=== PATIENT | female | born 2000 | race Caucasian/White ===

== ENCOUNTER 2019-06-18 18:11 | Emergency (ER) | payer OTHER ==
[~2019-06-18] VITALS: Ht 160 cm; Wt 59.1 kg
[2019-06-18 19:10] LABS: BASO % 0.3 % (0.0-1.0); EOS # 0.2 10^3/uL (0.0-0.50); EOS % 1.7 % (0.0-3.0); HEMATOCRIT 44.7 % (36.0-47.0); HEMOGLOBIN 15.7 g/dl (12.0-15.5); LYMPH # 1.8 10^3/uL (1.5-6.5); LYMPH % 19.5 % (24.0-44.0); MEAN CORPUSCULAR HEMOGLOBIN 31.7 pg (27.0-33.0); MEAN CORPUSCULAR HGB CONC 35.1 g/dl (32.0-36.5); MEAN CORPUSCULAR VOLUME 90.3 fl (80.0-96.0); MONO # 0.4 10^3/uL (0.0-0.8); MONO % 4.6 % (0.0-5.0); NEUTROPHILS # 6.9 10^3/uL (1.8-7.7); NEUTROPHILS % 73.8 % (36.0-66.0); PLATELET COUNT, AUTOMATED 301 10^3/uL (150-450); RED BLOOD COUNT 4.95 10^6/uL (4.00-5.40); WHITE BLOOD COUNT 9.3 10^3/uL (4.0-10.0)
[2019-06-18 19:38] LABS: ALBUMIN 4.4 GM/DL (3.2-5.2); ALT/SGPT 23 U/L (12-78); AMYLASE 61 U/L (25-115); BILIRUBIN,DIRECT < 0.1 MG/DL (0.0-0.2); BILIRUBIN,TOTAL 0.2 MG/DL (0.2-1.0); BLOOD UREA NITROGEN 16 MG/DL (7-18); CALCIUM LEVEL 9.7 MG/DL (8.5-10.1); CARBON DIOXIDE LEVEL 27 MEQ/L (21-32); CHLORIDE LEVEL 108 MEQ/L (98-107); CREATININE FOR GFR 0.93 MG/DL (0.55-1.30); GLUCOSE, FASTING 113 MG/DL (70-100); POTASSIUM SERUM 3.9 MEQ/L (3.5-5.1); SODIUM LEVEL 141 MEQ/L (136-145); TOTAL PROTEIN 8.8 GM/DL (6.4-8.2)
[2019-06-18 19:39] LABS: HCG, SERUM QUALITATIVE NEGATIVE (NEGATIVE)
[2019-06-18] MEDS ORDERED: NS 1,000 ML IV ONE (22:00)
[2019-06-18] MEDS ORDERED: ISOVUE-370 76% 100ML VIAL (Q9967) As Ordered ONE (22:14)
--- NOTE | 2019-06-18 23:09 | REPVR ---
EXAM: CT Abdomen and Pelvis With Contrast EXAM DATE/TIME: 06/18/2019 10:30 PM CLINICAL HISTORY: 18 years old, female; Abdominal pain; Localized; Right lower quadrant (rlq); Additional info: Rlq pain TECHNIQUE: Imaging protocol: Axial computed tomography images of the abdomen and pelvis with intravenous contrast. Coronal and sagittal reformatted images were created and reviewed. Radiation optimization: All CT scans at this facility use at least one of these dose optimization techniques: automated exposure control; mA and/or kV adjustment per patient size (includes targeted exams where dose is matched to clinical indication); or iterative reconstruction. Contrast material: ISOVUE 370;Contrast volume: 100 ml;Contrast route: IV; COMPARISON: No relevant prior studies available. FINDINGS: Liver: The liver attenuation is 90 Hounsfield units and the spleen is 131 Hounsfield units. Gallbladder and bile ducts: Normal. No calcified stones. No ductal dilation. Pancreas: Normal. No ductal dilation. Spleen: Normal. No splenomegaly. Adrenals: Normal. No mass. Kidneys and ureters: Normal. No hydronephrosis. Stomach and bowel: Normal. No obstruction. No mucosal thickening. Appendix: A normal contrast-filled appendix is seen. Intraperitoneal space: Normal. No free air. No significant fluid collection. Vasculature: Normal. No abdominal aortic aneurysm. Lymph nodes: Normal. No enlarged lymph nodes. Bladder: Unremarkable as visualized. Reproductive: The ovaries appear normal and symmetric. Bones/joints: No acute fracture. No dislocation. Soft tissues: Unremarkable. IMPRESSION: 1. Mild fatty infiltration of the liver. 2. Otherwise negative CT abdomen/pelvis. A normal appendix is seen. No renal or ureteral calculi are evident and there is no evidence of obstructive uropathy. Electronically signed by: Judah Pierce On 06/18/2019 23:09:10 PM
[2019-06-19] MEDS ORDERED: FLAG500T PO (00:02)
[2019-06-19 00:07] VITALS: BP 122/81
[2019-06-19 01:23] LABS: CHLAMYDIA DNA AMPLIFICATION NEGATIVE (NEGATIVE); GC DNA AMPLIFICATION NEGATIVE (NEGATIVE)
== END 2019-06-19 00:14 | disposition home or self-care (01) ==
LOC: M ED 18:11
DX: N76.0 Acute vaginitis (principal); R56.9 Unspecified convulsions
CPT/HCPCS: 74177; 80048; 80076; 81001; 82150; 84703; 85025; 87210; 87661; 96360; 96361; 99284; Q9967

== ENCOUNTER → 2019-08-09 | Outpatient (REF) | payer OTHER ==
[~2019-08-09] MED LIST: FLAG500T PO
== END ==
LOC: M SFHCLERA 18:46
PROVIDERS: ATTEND Physician Assistant
DX: J02.9 Acute pharyngitis, unspecified (principal)

== ENCOUNTER → 2020-05-01 | Outpatient (REF) | payer OTHER ==
[~2020-05-01] MED LIST changes: +ROBA750T4 PO
[2020-05-01 21:00] LABS: CHLAMYDIA DNA AMPLIFICATION POSITIVE (NEGATIVE); GC DNA AMPLIFICATION NEGATIVE (NEGATIVE)
== END ==
LOC: M SFHCLERA 14:55
PROVIDERS: ATTEND Physician Assistant
DX: R39.15 Urgency of urination (principal)

== ENCOUNTER 2020-05-15 01:16 | Emergency (ER) | payer OTHER ==
[~2020-05-15] VITALS: Ht 157.5 cm; Wt 68.2 kg
[~2020-05-15 01:16] MED LIST changes: -ROBA750T4 PO
[2020-05-15 01:17] VITALS: BP 128/85
[2020-05-15] MEDS ORDERED: methocarbamoL 750 MG TAB PO ONE (01:45)
[2020-05-15] MEDS ORDERED: ACETAMINOPHEN 325 MG TAB PO ONE (01:45)
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
[2020-05-15] MEDS ORDERED: ROBA750T4 PO (02:02)
== END 2020-05-15 02:09 | disposition home or self-care (01) ==
LOC: M ED 01:16
DX: S16.1XXA Strain of muscle, fascia and tendon at neck level, initial encounter (principal); V40.9XXA Unspecified car occupant injured in collision with pedestrian or animal in traffic accident, initial encounter; Y92.411 Interstate highway as the place of occurrence of the external cause; Y93.9 Activity, unspecified; Y99.9 Unspecified external cause status

== ENCOUNTER → 2020-05-28 | Outpatient (REF) | payer OTHER ==
[~2020-05-28] MED LIST changes: +AVIATAB PO; +IBUP-1022 PO; +ROBA750T4 PO
[2020-05-28 18:54] LABS: CHLAMYDIA DNA AMPLIFICATION NEGATIVE (NEGATIVE); GC DNA AMPLIFICATION NEGATIVE (NEGATIVE)
== END ==
LOC: M SFHCLERA 11:51
PROVIDERS: ATTEND Physician Assistant
DX: Z11.3 Encounter for screening for infections with a predominantly sexual mode of transmission (principal)
CPT/HCPCS: 81025; 87661; G0463

== ENCOUNTER 2020-08-06 13:47 | Emergency (ER) | payer OTHER ==
[~2020-08-06] VITALS: Ht 157.5 cm; Wt 69.8 kg
[~2020-08-06 13:47] MED LIST changes: -AVIATAB PO; -IBUP-1022 PO
[2020-08-06] MEDS ORDERED: AVIATAB PO (13:56)
[2020-08-06 14:51] LABS: BASO # 0.1 10^3/uL (0.0-0.2); BASO % 0.6 % (0.0-1.0); EOS # 0.1 10^3/uL (0.0-0.5); EOS % 1.1 % (0.0-3.0); HEMATOCRIT 41.5 % (36.0-47.0); HEMOGLOBIN 14.1 g/dl (12.0-15.5); LYMPH # 1.6 10^3/uL (1.5-5.0); LYMPH % 17.8 % (24.0-44.0); MEAN CORPUSCULAR HEMOGLOBIN 31.8 pg (27.0-33.0); MEAN CORPUSCULAR VOLUME 93.5 fl (80.0-96.0); MONO # 0.6 10^3/uL (0.0-0.8); MONO % 6.8 % (0.0-5.0); NEUTROPHILS # 6.5 10^3/uL (1.5-8.5); NEUTROPHILS % 73.4 % (36.0-66.0); PLATELET COUNT, AUTOMATED 269 10^3/uL (150-450); RED BLOOD COUNT 4.44 10^6/uL (4.00-5.40); WHITE BLOOD COUNT 8.8 10^3/uL (4.0-10.0)
[2020-08-06 15:13] LABS: ALBUMIN 3.6 GM/DL (3.2-5.2); ALT/SGPT 21 U/L (12-78); BILIRUBIN,DIRECT < 0.1 MG/DL (0.0-0.2); BILIRUBIN,TOTAL 0.4 MG/DL (0.2-1.0); BLOOD UREA NITROGEN 15 MG/DL (7-18); CALCIUM LEVEL 8.8 MG/DL (8.5-10.1); CARBON DIOXIDE LEVEL 28 MEQ/L (21-32); CHLORIDE LEVEL 109 MEQ/L (98-107); CREATININE FOR GFR 1.01 MG/DL (0.55-1.30); GLUCOSE, FASTING 97 MG/DL (70-100); LIPASE 124 U/L (73-393); POTASSIUM SERUM 4.2 MEQ/L (3.5-5.1); SODIUM LEVEL 142 MEQ/L (136-145); TOTAL PROTEIN 7.3 GM/DL (6.4-8.2)
[2020-08-06] MEDS ORDERED: ACETAMINOPHEN 325 MG TAB PO ONE (16:45)
--- NOTE | 2020-08-06 17:58 | REPVR ---
PROCEDURE INFORMATION: Exam: US Pelvis Complete, Transabdominal and US Pelvis, Transvaginal and US Duplex Artery and Vein, Ovaries, Complete Exam date and time: 08/06/2020 5:20 PM Age: 19 years old Clinical indication: Pelvic pain; Additional info: Pelvic pain, left adenexal pain TECHNIQUE: Imaging protocol: Real-time transabdominal and transvaginal pelvic ultrasound (complete) with image documentation. Transvaginal imaging was used for better evaluation of the endometrium and adnexa. Real-time duplex ultrasound scan of the arterial and venous flow of the ovaries with B-mode, color Doppler flow and spectral waveform analysis. COMPARISON: CT ABD/PEL W/IV CONTRAST ONLY 06/18/2019 10:21 PM FINDINGS: Uterus/cervix: The uterus measures 7.0 x 3.8 x 5.5 cm transabdominally and 8.0 x 4.3 x 6.4 cm transvaginally. It is anteverted and homogeneous in echotexture, without demonstrated lesion. The endometrium measures 14 mm in thickness transabdominally and 8 mm in thickness transvaginally. Right adnexa: The right ovary measures 2.4 x 3.2 x 1.8 cm, as seen transvaginally only, and contains multiple follicles. There is normal internal arterial and venous flow. Peak systolic velocity 11.1 cm/s, end-diastolic velocity 4.9 cm/s, resistive index 0.56. Left adnexa: The left ovary measures 3.0 x 2.2 x 2.4 cm, as seen transvaginally only, and contains multiple follicles. There is normal internal arterial and venous flow. Peak systolic velocity 9.2 cm/s, end-diastolic velocity 2.8 cm/s, resistive index 0.69. Intraperitoneal space: No significant free fluid is demonstrated in the cul-de-sac. Bladder: The urinary bladder measures 6.6 x 3.7 x 9.0 cm. IMPRESSION: 1. Bilateral ovarian follicles. 2. Normal internal flow to both ovaries without torsion. 3. Anteverted uterus without demonstrated abnormality. Endometrial thickness of 14 mm transabdominally but only 8 mm transvaginally. Electronically signed by: Joseph Longoria On 08/06/2020 17:57:45 PM
[2020-08-06] MEDS ORDERED: IBUP-1022 PO (18:15)
[2020-08-06 18:24] VITALS: BP 110/75
--- NOTE | 2020-08-08 16:38 | ED PDOC ---
Post-Departure Follow-Up certified letter sent to [facility] for [facility] Carla Ortiz MD Aug 08, 2020 16:38
== END 2020-08-06 18:29 | disposition home or self-care (01) ==
LOC: M ED 13:47
DX: N94.6 Dysmenorrhea, unspecified (principal); Z79.3 Long term (current) use of hormonal contraceptives

== ENCOUNTER → 2020-08-29 | Outpatient (CLI) | payer OTHER ==
[~2020-08-29] MED LIST changes: +AVIATAB PO; +IBUP-1022 PO
== END ==
LOC: M LABSMTC 14:09
PROVIDERS: ATTEND Family Medicine
DX: Z20.828 Contact with and (suspected) exposure to other viral communicable diseases (principal)
CPT/HCPCS: C9803; U0003

== ENCOUNTER 2020-09-24 20:21 | Emergency (ER) | payer OTHER, SELFPAY ==
[~2020-09-24] VITALS: Ht 157.5 cm; Wt 67.7 kg
--- NOTE | 2020-09-24 20:52 | REPVR ---
PROCEDURE INFORMATION: Exam: XR Chest, 2 Views Exam date and time: 09/24/2020 8:49 PM Age: 19 years old Clinical indication: Other: Chest pain TECHNIQUE: Imaging protocol: XR of the chest Views: 2 views. COMPARISON: No relevant prior studies available. FINDINGS: Lungs: Unremarkable. No consolidation. Pleural space: Unremarkable. No pleural effusion. No pneumothorax. Heart/Mediastinum: Unremarkable. No cardiomegaly. Bones/joints: Unremarkable. IMPRESSION: No acute findings. Electronically signed by: Vaughn Michelle On 09/24/2020 20:52:00 PM
[2020-09-24 21:57] LABS: BASO % 0.3 % (0.0-1.0); EOS # 0.1 10^3/uL (0.0-0.5); EOS % 1.6 % (0.0-3.0); HEMATOCRIT 40.5 % (36.0-47.0); HEMOGLOBIN 13.4 g/dl (12.0-15.5); LYMPH # 2.5 10^3/uL (1.5-5.0); LYMPH % 28.6 % (24.0-44.0); MEAN CORPUSCULAR HEMOGLOBIN 30.6 pg (27.0-33.0); MEAN CORPUSCULAR HGB CONC 33.1 g/dl (32.0-36.5); MEAN CORPUSCULAR VOLUME 92.5 fl (80.0-96.0); MONO # 0.6 10^3/uL (0.0-0.8); MONO % 7.3 % (0.0-5.0); NEUTROPHILS # 5.4 10^3/uL (1.5-8.5); NEUTROPHILS % 62.1 % (36.0-66.0); PLATELET COUNT, AUTOMATED 302 10^3/uL (150-450); RED BLOOD COUNT 4.38 10^6/uL (4.00-5.40); WHITE BLOOD COUNT 8.7 10^3/uL (4.0-10.0)
[2020-09-24 22:08] LABS: INR 0.92; PROTHROMBIN TIME 12.5 SECONDS (12.5-14.3)
[2020-09-24 22:09] LABS: PARTIAL THROMBOPLASTIN TIME 27.1 SECONDS (24.2-38.5)
[2020-09-24 22:12] LABS: D-DIMER QUANT < 270 ng/ml (<500)
[2020-09-24 22:31] LABS: BLOOD UREA NITROGEN 17 MG/DL (7-18); CALCIUM LEVEL 9.4 MG/DL (8.5-10.1); CARBON DIOXIDE LEVEL 27 MEQ/L (21-32); CHLORIDE LEVEL 107 MEQ/L (98-107); CK-MB VALUE MASS < 1.0 NG/ML (<3.6); CPK CREATINE PHOSPHOKINASE 52 U/L (26-192); CREATININE FOR GFR 0.88 MG/DL (0.55-1.30); GLUCOSE, FASTING 82 MG/DL (70-100); MB/CK RELATIVE INDEX 1.92 (< OR =4); POTASSIUM SERUM 4.1 MEQ/L (3.5-5.1); SODIUM LEVEL 141 MEQ/L (136-145); TROPONIN I < 0.02 NG/ML (< 0.10)
[2020-09-24 23:10] VITALS: BP 126/82
--- NOTE | 2020-09-25 18:56 | ECGEPIP ---
[facility] - ED Test Date: 2020-09-24 Pat Name: MICHAELLE SPENCER Department: Room: - Gender: Female [employer] Admin: : [id number] Requested By: VERONA Wellington Order Number: [id number] Reading MD: Coleen Farmer Measurements Intervals [place] Rate: 76 P: 14 UT: 133 QRS: 38 QRSD: 87 T: 9 QT: 373 QTc: 421 Interpretive Statements SINUS RHYTHM WITH SINUS ARRHYTHMIA NO PRIOR Electronically Signed on 09-25-2020 18:56:03 EST by Coleen Farmer
== END 2020-09-24 23:10 | disposition home or self-care (01) ==
LOC: M ED 20:21
DX: R07.9 Chest pain, unspecified (principal); Z79.3 Long term (current) use of hormonal contraceptives

== ENCOUNTER 2020-12-22 21:25 | Emergency (ER) | payer OTHER ==
[~2020-12-22] VITALS: Ht 157.5 cm; Wt 69.8 kg
[2020-12-23] MEDS ORDERED: GI COCKTAIL 50ML BTL(HYOSCYAMINE/MAALOX/LIDOCAINE VISCOUS)(1:3:1) PO ONE (00:30)
[2020-12-23 00:52] LABS: BASO % 0.5 % (0.0-1.0); EOS # 0.1 10^3/uL (0.0-0.5); EOS % 2.1 % (0.0-3.0); HEMATOCRIT 42.3 % (36.0-47.0); HEMOGLOBIN 14.2 g/dl (12.0-15.5); LYMPH # 3.3 10^3/uL (1.5-5.0); LYMPH % 49.5 % (24.0-44.0); MEAN CORPUSCULAR HEMOGLOBIN 30.6 pg (27.0-33.0); MEAN CORPUSCULAR HGB CONC 33.6 g/dl (32.0-36.5); MEAN CORPUSCULAR VOLUME 91.2 fl (80.0-96.0); MONO # 0.5 10^3/uL (0.0-0.8); MONO % 7.7 % (0.0-5.0); NEUTROPHILS # 2.6 10^3/uL (1.5-8.5); NEUTROPHILS % 39.9 % (36.0-66.0); PLATELET COUNT, AUTOMATED 263 10^3/uL (150-450); RED BLOOD COUNT 4.64 10^6/uL (4.00-5.40); WHITE BLOOD COUNT 6.6 10^3/uL (4.0-10.0)
[2020-12-23 01:39] LABS: MONO SCRN POSITIVE (NEGATIVE)
[2020-12-23] MEDS ORDERED: MAGICMW SSP (01:39)
[2020-12-23] MEDS ORDERED: CEPH500C PO (01:39)
[2020-12-23] MEDS ORDERED: CEPHALEXIN 500 MG CAP PO ONE (01:45)
[2020-12-23 01:53] VITALS: BP 118/79
== END 2020-12-23 01:55 | disposition home or self-care (01) ==
LOC: M ED 21:25
DX: B27.90 Infectious mononucleosis, unspecified without complication (principal); Z79.3 Long term (current) use of hormonal contraceptives